=== PATIENT | female | born 1990 | race Hispanic/Latino ===

== ENCOUNTER 2017-10-19 18:04 | Emergency (ER) | payer SELFPAY ==
[2017-10-19] MEDS ORDERED: NACL 0.9% 1000 ML 1,000 ML IV ONE (18:20)
[2017-10-19 18:52] LABS: Basophils # (Auto) 0.1 K/mm3 (0.0-0.1); Basophils % (Auto) 0.5 % (0.0-1.8); Eosinophils # (Auto) 0.1 K/mm3 (0.0-0.4); Eosinophils % (Auto) 0.5 % (0.0-4.3); Hematocrit 43.7 % (30.3-42.9); Hemoglobin 15.1 gm/dl (10.1-14.3); Lymphocytes # (Auto) 2.5 K/mm3 (1.2-5.4); Lymphocytes % (Auto) 19.1 % (13.4-35.0); Mean Corpuscular HGB Conc 35 % (30-34); Mean Corpuscular Hemoglobin 31 pg (28-32); Mean Corpuscular Volume 91 fl (79-97); Monocytes # (Auto) 1.4 K/mm3 (0.0-0.8); Monocytes % (Auto) 10.6 % (0.0-7.3); Platelet Count 314 K/mm3 (140-440); Red Cell Distribution Width 13.5 % (13.2-15.2)
[2017-10-19 18:56] LABS: Bilirubin,Urine NEG (Negative); Blood,Urine NEG (Negative); Color,Urine Yellow (Yellow); Mucus,Urine FEW /HPF; Protein,Urine <15 mg/dL mg/dL (Negative); Urobilinogen,Urine < 2.0 mg/dL (<2.0)
[2017-10-19 19:03] LABS: HCG Qualitative,Urine Negative (Negative)
[2017-10-19 19:10] LABS: BUN/Creatinine Ratio 9; Blood Urea Nitrogen 6 mg/dL (7-17)
[2017-10-19 19:11] LABS: Alanine Aminotransferase 14 units/L (7-56); Albumin 4.5 g/dL (3.9-5); Calcium 9.4 mg/dL (8.4-10.2); Hemolysis Index 11
[2017-10-19] MEDS ORDERED: ZOFRAN IV ONE (20:12)
[2017-10-19] MEDS ORDERED: MORPHINE IV ONE (20:12)
--- NOTE | 2017-10-19 20:17 | Emergency Department Report ---
HPI - General Chief Complaint: Abdominal Pain Time Seen by Provider: 10/19/17 19:34 - HPI HPI: 27-year-old female presents to the emergency department with complaint of right lower quadrant abdominal pain that has been going on for the past few days. It actually appeared to bother her last week and over the weekend but that went away and returned 3 or 4 days ago. Currently it is 9 out of 10 in intensity and a sharp pain. It is mostly localized to the right lower quadrant but sometimes she feels like it will radiate towards the left lower abdomen as well. She has not checked her temperature but says that she has been running a fever over the past few days. She has some nausea without vomiting and has been having chills. No past medical history. She has been alternating between Tylenol and ibuprofen without any relief. ED Past Medical Hx - Past Medical History Previous Medical History?: No - Surgical History Past Surgical History?: No - Social History Smoking Status: Current Every Day Smoker Substance Use Type: Alcohol, Marijuana - Medications Home Medications: Home Medications Medication Instructions Recorded Confirmed Last Taken Type HYDROcodone/APAP 5-325 [P[place]ley 1 each PO Q6HR PRN #10 tablet 10/20/17 Unknown Rx 5/325] ED Review of Systems ROS: Stated complaint: PSS APPENDICITIS Other details as noted in HPI Comment: All other systems reviewed and negative Constitutional: chills, fever (subjective) Eyes: denies: eye pain, eye discharge, vision change ENT: denies: ear pain, throat pain Respiratory: denies: cough, shortness of breath, wheezing Cardiovascular: denies: chest pain, palpitations Gastrointestinal: abdominal pain, nausea. denies: vomiting Genitourinary: denies: urgency, dysuria, discharge Musculoskeletal: denies: back pain, joint swelling, arthralgia Skin: denies: rash, lesions Neurological: denies: headache, weakness, paresthesias Physical Exam - Physical Exam Vital Signs: Vital Signs 10/19/17 10/19/17 18:05 19:31 Temperature 98.0 F Pulse Rate 110 H Respiratory 18 Rate Blood Pressure 131/91 O2 Sat by Pulse 100 Oximetry Physical Exam: GENERAL: The patient is well-developed well-nourished. HENT: Normocephalic. Atraumatic. Patient has moist mucous membranes. EYES: Extraocular motions are intact. Pupils equal reactive to light bilaterally. NECK: Supple. Trachea is midline. CHEST/LUNGS: Clear to auscultation. There is no respiratory distress noted. HEART/CARDIOVASCULAR: Regular. There is no tachycardia. There is no murmur. ABDOMEN: Abdomen is soft. There is some right lower quadrant tenderness to palpation. No guarding.. Patient has normal bowel sounds. There is no abdominal distention. SKIN: Skin is warm and dry. NEURO: The patient is awake, alert, and oriented. The patient is cooperative. The patient has no focal neurologic deficits. The patient has normal speech. MUSCULOSKELETAL: There is no tenderness or deformity. There is no limitation range of motion. There is no evidence of acute injury. ED Course Vital Signs 10/19/17 10/19/17 18:05 19:31 Temperature 98.0 F Pulse Rate 110 H Respiratory 18 Rate Blood Pressure 131/91 O2 Sat by Pulse 100 Oximetry ED Medical Decision Making - Lab Data Result diagrams: 10/19/17 18:33 10/19/17 18:33 - Radiology Data Radiology results: report reviewed PROCEDURE: CT ABDOMEN PELVIS W CON TECHNIQUE: Computerized axial tomography of the abdomen and pelvis was performed after the IV injection of iodinated nonionic contrast. HISTORY: abdominal pain COMPARISON: No prior studies are available for comparison. FINDINGS: Liver, spleen, pancreas and adrenal glands are within normal limits. Bilateral kidneys demonstrate uniform enhancement without hydronephrosis. Urinary bladder is unremarkable. Aorta is of normal caliber. There is no free fluid or free air. Gallbladder is unremarkable. Small bowel loops are within normal limits. Appendix is partially visualized and is normal. There is inhomogeneous enhancement of the uterus. Vertebral height is normal. IMPRESSION: There is inhomogeneous enhancement of the uterus. Fibroid changes cannot be excluded. Ultrasound evaluation is recommended. Otherwise unremarkable study. Transcribed By: [facility] [place] Dictated By: DALLAS ACHARYA Electronically Authenticated By: DALLAS ACHARYA Signed Date/Time: 10/19/172047 EXAM: US TRANSVAGINAL HISTORY: pelvic pain COMPARISON: CT of the abdomen and pelvis from the same date. TECHNIQUE: Several real-time grayscale and color Doppler images were obtained. Transvaginal exam. Transabdominal exam. FINDINGS: Uterus measures 6.5 x 4.3 x 4.4 centimeters. Endometrial stripe measures 7 millimeters within normal limits. Uterus is partially retroverted for portion of the study. Trace fluid in the pelvis within physiologic limits. No discrete uterine lesions. Right ovary measures 3.1 x 1.9 x 2.5 centimeters. Left ovary measures 2.8 x 1.9 x 2.5 centimeters. Within the right ovary there is a dominant follicle measuring 1.4 centimeters. Within the left ovary there is a dominant follicle measuring 1.2 centimeters. Spectral analysis demonstrates arterial waveforms to the ovaries. No adnexal masses. IMPRESSION: No discrete uterine lesions or adnexal masses. Normal physiologic changes of the ovaries. Transcribed By: ALICIA Dictated By: LORENA TALAVERA MD Electronically Authenticated By: LORENA TALAVERA MD Signed Date/Time: 10/20/17 0056 - Medical Decision Making Patient presents with some right lower quadrant abdominal pain and concern for appendicitis. She has slightly tender to the right lower quadrant but there is no guarding. The abdomen is soft, nontoxic, non-rigid appearing. She has some mild tachycardia but is afebrile upon presentation. Labs have been mostly unremarkable. There is a mild leukocytosis of 13,000 but there is no neutrophilia or left shift. A CT scan of the abdomen and pelvis was done with IV contrast that did not show any signs of appendicitis or any other obvious acute process but may have shown some signs of fibroids and recommended ultrasound imaging. The ultrasound was then done that did not show any signs of torsion, fibroids or any other obvious acute process. The patient is showing some improvement. She returns back home to [place] in a few days where she has a physician for follow-up. She has been instructed to return to the emergency Department with any worsening of her symptoms, intractable fever or vomiting, or with any acute distress. - Differential Diagnosis appendicitis, colitis, ovarian cyst, ovarian torsion, nephrolithiasis Critical Care Time: No Critical care attestation.: If time is entered above; I have spent that time in minutes in the direct care of this critically ill patient, excluding procedure time. ED Disposition Clinical Impression: Abdominal pain Qualifiers: Abdominal location: right lower quadrant Qualified Code(s): R10.31 - Right lower quadrant pain Disposition: DC-01 TO HOME OR SELFCARE Is pt being admited?: No Condition: Stable Instructions: Abdominal Pain (ED) Additional Instructions: Please follow-up with your primary care physician in the next few days. Return to the emergency Department with any worsening of your symptoms. You have been prescribed a medication that is sedating and therefore should not be taken prior to driving, working, and responsible for children and in no way should be mixed with alcohol of any quantity. Prescriptions: HYDROcodone/APAP 5-325 [Paisley 5/325] 1 each PO Q6HR PRN #10 tablet PRN Reason: Pain Referrals: PRIMARY CARE, [Primary Care Provider] - CANDICE Forms: Accompanied Note, Work/School Release Form(ED) Time of Disposition: 01:00
--- NOTE | 2017-10-19 20:49 | Cat Scan Report ---
FINAL REPORT PROCEDURE: CT ABDOMEN PELVIS W CON TECHNIQUE: Computerized axial tomography of the abdomen and pelvis was performed after the IV injection of iodinated nonionic contrast. HISTORY: abdominal pain COMPARISON: No prior studies are available for comparison. FINDINGS: Liver, spleen, pancreas and adrenal glands are within normal limits. Bilateral kidneys demonstrate uniform enhancement without hydronephrosis. Urinary bladder is unremarkable. Aorta is of normal caliber. There is no free fluid or free air. Gallbladder is unremarkable. Small bowel loops are within normal limits. Appendix is partially visualized and is normal. There is inhomogeneous enhancement of the uterus. Vertebral height is normal. IMPRESSION: There is inhomogeneous enhancement of the uterus. Fibroid changes cannot be excluded. Ultrasound evaluation is recommended. Otherwise unremarkable study.
--- NOTE | 2017-10-20 00:58 | Ultrasound Report ---
FINAL REPORT EXAM: US PELVIS DUPLEX DOPPLER COMP HISTORY: pelvic pain COMPARISON: CT of the abdomen and pelvis from the same date. TECHNIQUE: Several real-time grayscale and color Doppler images were obtained. Transvaginal exam. Transabdominal exam. FINDINGS: Uterus measures 6.5 x 4.3 x 4.4 centimeters. Endometrial stripe measures 7 millimeters within normal limits. Uterus is partially retroverted for portion of the study. Trace fluid in the pelvis within physiologic limits. No discrete uterine lesions. Right ovary measures 3.1 x 1.9 x 2.5 centimeters. Left ovary measures 2.8 x 1.9 x 2.5 centimeters. Within the right ovary there is a dominant follicle measuring 1.4 centimeters. Within the left ovary there is a dominant follicle measuring 1.2 centimeters. Spectral analysis demonstrates arterial waveforms to the ovaries. No adnexal masses. IMPRESSION: No discrete uterine lesions or adnexal masses. Normal physiologic changes of the ovaries.
[2017-10-20 01:58] VITALS: BP 109/78
== END 2017-10-20 01:59 | disposition home or self-care (01) ==
LOC: ED 18:04
DX: R10.31 Right lower quadrant pain (principal); F17.200 Nicotine dependence, unspecified, uncomplicated; F12.10 Cannabis abuse, uncomplicated
CPT/HCPCS: 36415; 74177; 76830; 80053; 81001; 81025; 83690; 85025; 93975; 96361; 96374; 96375; 99284; J2270; J2405; J7030; Q9967